=== PATIENT | male | born 1940 | race Caucasian/White ===

== ENCOUNTER 2016-12-12 08:35 | Emergency (ER) | payer MEDICARE ==
[~2016-12-12] VITALS: Ht 172.7 cm; Wt 107.8 kg
[2016-12-12 08:35] VITALS: BP 162/82
[~2016-12-12 08:35] MED LIST: ASPI-496 PO; ATEN25TA PO; ATOR80TA75 PO; CLOP75TA PO; LEVO150T5 PO; LISI-167 PO; PRAV80TA2 PO; TRAM50TA2 PO
[2016-12-12 10:35] LABS: HEMATOCRIT 44.4 % (39.2-51.8); HEMOGLOBIN 14.5 g/dL (13.7-18.0); WHITE BLOOD COUNT 7.1 x10^3/uL (3.4-10)
[2016-12-12 10:48] LABS: ASPARTATE AMINO TRANSFERASE 20 U/L (15-37); BLOOD UREA NITROGEN 21 mg/dL (7-18)
== END 2016-12-12 12:59 | disposition home or self-care (01) ==
LOC: ED 11:38
DX: N30.91 Cystitis, unspecified with hematuria (principal); N39.0 Urinary tract infection, site not specified; I10 Essential (primary) hypertension; I25.2 Old myocardial infarction; I25.10 Atherosclerotic heart disease of native coronary artery without angina pectoris; Z86.73 Personal history of transient ischemic attack (TIA), and cerebral infarction without residual deficits
CPT/HCPCS: 36415; 80053; 81001; 82550; 85025; 85610; 87086; 99284